=== PATIENT | female | born 1960 | race African-American/Black ===

== ENCOUNTER 2022-07-31 11:48 | Emergency (ER) | payer MEDICAID, OTHER ==
[~2022-07-31] VITALS: Ht 149.9 cm; Wt 72.0 kg
[2022-07-31 11:55] VITALS: BP 155/97
[2022-07-31] MEDS ORDERED: KETOROLAC 60MG/2ML VIAL IM STA (12:12)
[2022-07-31 13:38] LABS: CLARITY URINE CLOUDY (CLEAR); COLOR URINE YELLOW (YELLOW); KETONES URINE TRACE (NEGATIVE); LEUKOCYTE ESTERASE URINE NEGATIVE (NEGATIVE); NITRITE URINE NEGATIVE (NEGATIVE); OCCULT BLOOD URINE 2+ (NEGATIVE); PH URINE 5.5 (4.5-8.0); PROTEIN URINE 2+ (NEGATIVE); SPECIFIC GRAVITY URINE 1.036 (1.005-1.030)
[2022-07-31] MEDS ORDERED: HYDR-4001 MT (15:53)
[2022-07-31] MEDS ORDERED: IBUP-2029 MT (15:53)
== END 2022-07-31 16:38 | disposition home or self-care (01) ==
LOC: ER 11:48
DX: N13.2 Hydronephrosis with renal and ureteral calculous obstruction (principal); R00.0 Tachycardia, unspecified
CPT/HCPCS: 74176; 81003; 93005; 96372; 99285; J1885